=== PATIENT | male | born 1980 | race Two or more races ===

== ENCOUNTER 2016-09-04 17:50 | Emergency (ER) | payer SELFPAY ==
[~2016-09-04] VITALS: Ht 172.7 cm; Wt 59.0 kg
[2016-09-04 18:54] LABS: Basophils # (auto) 0.1 uL; Basophils % (auto) 0.4 % (0.0-2.0); CONDITION Y; Eosinophils # (auto) 0.2 uL; Eosinophils % (auto) 0.9 % (0.0-7.0); Hematocrit 41.5 % (41.0-53.0); Lymphocytes # (auto) 2.6 uL; Mean Corpuscular Hemoglobin 30.8 pg (28.0-32.0); Mean Corpuscular Hgb Conc. 33.6 g/dL (32.0-36.0); Mean Corpuscular Volume 91.7 fL (80.0-100.0); Mean Platelet Volume 8.4 fL (7.4-10.4); Monocytes % (auto) 5.4 % (0.0-12.0); Neutrophils # (auto) 14.8 uL; Neutrophils % (auto) 79.3 % (37.0-80.0); Platelet Count (auto) 290 10^3/uL (140-450); Red Cell Distribution Width 13.1 % (11.6-16.0); White Blood Cell 18.6 10^3/uL (4.4-10.8)
[2016-09-04 18:59] LABS: Albumin 3.6 g/dL (3.4-5.0); Anion Gap 5 (5-15); Blood Urea Nitrogen 14 mg/dL (7-18); Calcium 8.1 mg/dL (8.5-10.1); Carbon Dioxide 28 mmol/L (21-32); Chloride 109 mmol/L (98-107); Glucose 103 mg/dL (74-106); Magnesium 2.4 mg/dL (1.6-2.6); Potassium 3.9 mmol/L (3.5-5.1); Sodium 142 mmol/L (136-145)
[2016-09-04 19:01] LABS: Aspartate Aminotransferase 15 U/L (15-37); BUN/Creatinine Ratio 16.1; GFR African American 128 mL/min; GFR Non-African American 106 mL/min
[2016-09-04 19:03] LABS: Alkaline Phosphatase 102 U/L (45-117); Bilirubin, Total 0.3 mg/dL (0.2-1.0); Total Protein 7.3 g/dL (6.4-8.2)
[2016-09-04] MEDS ORDERED: ceFAZolin 1GM/50ML D5W 100 ML IV ONE (19:15)
[2016-09-04 19:55] VITALS: BP 138/91
== END 2016-09-04 20:13 | disposition short-term general hospital (02) ==
LOC: ER 17:58
DX: S02.40CA Maxillary fracture, right side, initial encounter for closed fracture (principal); S02.652A Fracture of angle of left mandible, initial encounter for closed fracture; S00.03XA Contusion of scalp, initial encounter; S09.90XA Unspecified injury of head, initial encounter; R41.82 Altered mental status, unspecified; Y08.89XA Assault by other specified means, initial encounter; Y93.89 Activity, other specified; Y99.8 Other external cause status; Y92.89 Other specified places as the place of occurrence of the external cause
CPT/HCPCS: 36415; 70450; 72125; 80053; 80320; 83735; 85025; 94761; 96365; 99285; J0690